=== PATIENT | female | born 1985 | race Caucasian/White ===

== ENCOUNTER 2021-10-07 18:05 | Emergency (ER) | payer OTHER, SELFPAY ==
--- NOTE | ~2021-10-07 | XR_ITS ---
EXAMINATION: XR chest 2V DATE: 10/07/2021 18:33 INDICATION: Cough and fatigue TECHNIQUE: PA and lateral views of the chest are obtained. COMPARISON: 05/30/2010 FINDINGS: The lungs are free of acute opacities. No pleural effusion or pneumothorax. The cardiomedia stinal silhouette is normal. The visualized bones and soft tissues are unremarkable. IMPRESSION: 1. No acute cardiopulmonary abnormality. Reviewed, dictated and finalized at location A.
[2021-10-07 18:13] VITALS: BP 120/83; PULSE 79; RESP 16; TEMP 37.6; O2SAT 100
--- NOTE | 2021-10-07 18:28 | ED.URI ---
HPI - URI/Sore Throat General Chief Complaint: Upper Respiratory Infection Stated Complaint: cough/fatigue Time Seen by Provider: 10/07/21 18:18 Source: patient Mode of arrival: ambulatory Limitations: no limitations History of Present Illness HPI Narrative: Patient presents today complaining of 2-day history of cough, nasal congestion, fatigue, fever up to 100.9, and shortness of breath with some chest pressure. She has tried no medication for her symptoms prior to arrival. She was tested by her job for influenza, but does not yet have the results. She tested positive for COVID-19 on September 21 and started Paxil Pop on September 22 for 5 days. States her symptoms resolved and she was back to baseline after the course of that medication. Denies any history of asthma or COPD. She has been vaccinated for COVID-19. Related Data Allergies Allergy/AdvReac Type Severity Reaction Status Date / Time latex Allergy Mild Verified 02/23/13 07:53 morphine Allergy Mild Verified 02/23/13 07:53 Review of Systems Review of Systems: CONSTITUTIONAL: Denies body aches, chills, or sweats.+ Fever, fatigue EYES: Denies visual changes, redness, or discharge. ENT: Denies rhinorrhea, sore throat, or otalgia.+ congestion CARDIOVASCULAR: Denies chest pain, palpitations, or edema. RESPIRATORY: + Cough, chest pressure, shortness of breath GASTROINTESTINAL: Denies abdominal pain, nausea, vomiting, or diarrhea. GENITOURINARY: Denies dysuria or hematuria. SKIN: Denies rash, itching, or wounds. MUSCULOSKELETAL: Denies back pain, joint pain, or myalgia. NEUROLOGIC: Denies headache, numbness, tingling, or weakness. PSYCH: Denies depression or anxiety. PMFSH Comments At time of signature, I have reviewed and agree with nursing past medical, surgical, social and family history unless otherwise noted. Please see nursing chart for further information. There is no relevant family history pertinent to the presenting complaint Exam Narrative: GENERAL: Mildly ill-appearing, well-nourished, and in no acute distress. HEAD: Normocephalic, atraumatic. EYES: EOMI. No redness or drainage. Conjunctivae normal. ENT: Mucous membranes pink and moist. Nares congested. No rhinorrhea. TMs normal bilaterally. Throat normal. Uvula midline. NECK: Normal AROM. Supple. No lymphadenopathy. CHEST: No respiratory distress. Clear to auscultation. Slightly labored when speaking. HEART: Regular rate and rhythm. No murmur appreciated. Normal peripheral pulses. EXTREMITIES: Normal range of motion. No edema. SKIN: Warm, dry, no rash. Capillary refill normal. Normal skin turgor. NEURO: No focal deficits. Alert and oriented x3. Gait steady. PSYCH: Normal affect. No signs of depression or anxiety. Course Course Level of Care: Express Care Visit Vital Signs Vital signs: Vital Signs Temperature 99.6 F 10/07/21 18:13 Pulse Rate 79 10/07/21 18:13 Respiratory Rate 16 10/07/21 18:13 Blood Pressure 120/83 10/07/21 18:13 Pulse Oximetry 100 10/07/21 18:13 Oxygen Delivery Room Air 10/07/21 18:13 Temperature 99.6 F 10/07/21 18:13 Pulse Rate 79 10/07/21 18:13 Respiratory Rate 16 10/07/21 18:13 Blood Pressure 120/83 10/07/21 18:13 Pulse Oximetry 100 10/07/21 18:13 Oxygen Delivery Room Air 10/07/21 18:13 Reviewed. Pt has been instructed to follow up with her PCP regarding her elevated blood pressure today. MDM - URI/Sore Throat Differential Diagnosis Differential diagnosis: Likely upper respiratory infection, viral infection, bronchitis, influenza and other (Pneumonia) Imaging Data Radiologist's impression: ITS Impressions Chest X-Ray 10/07/21 18:34 IMPRESSION: 1. No acute cardiopulmonary abnormality. Critical Care Time Critical Care Time Critical Care Time: No Discharge Plan Discharge Clinical Impression: Upper respiratory infection, Bronchitis Patient Disposition: Home, Self-Care Condition: Stable I
== END 2021-10-07 18:55 | disposition home or self-care (01) ==
PROVIDERS: Emergency Provider Nurse Practitioner
DX: J06.9 Acute upper respiratory infection, unspecified (principal); J40 Bronchitis, not specified as acute or chronic; Z86.16 Personal history of COVID-19
CPT/HCPCS: 71046; 99203; G0463

== ENCOUNTER 2022-02-19 17:17 | Emergency (ER) | payer OTHER, SELFPAY ==
--- NOTE | ~2022-02-19 | XR_ITS ---
EXAMINATION: XR abdomen/kub 1V DATE: 02/19/2022 17:50 INDICATION: Low abdominal pain. TECHNIQUE: A supine view of the abdomen was obtained. COMPARISON: None. FINDINGS: There are no dilated loops of bowel. There is a moderate volume of stool in the colon. Ther e is an intrauterine device in expected position. IMPRESSION: 1. Normal bowel gas pattern. Reviewed, dictated and finalized at location A. TIC [employer]ER
--- NOTE | 2022-02-19 17:28 | ED.ABDPAIN ---
HPI - Abdominal Pain General Chief Complaint: Abdominal Pain Stated Complaint: ABD PAIN Time Seen by Provider: 02/19/22 17:32 Source: patient and RN notes reviewed Mode of arrival: ambulatory Limitations: no limitations History of Present Illness HPI narrative: 36-year-old female presents concern for bilateral lower quadrant abdominal pain. She reports pain began on February 13 after she had intercourse. She reports the condom may have broken during intercourse. She reports she has an IUD that is , in August. She has not felt for the strings. She denies abnormal vaginal discharge, abnormal vaginal bleeding, dysuria, frequency, urgency. She reports she has constipation, last bowel movement was today which was hard and she strained. She denies flank pain. She denies relieving or exacerbating factors to her abdominal pain. She reports the pain is intermittent in nature and is throbbing particularly left lower quadrant. She reports history of ovarian cyst, reports this pain does seem similar to that. MD elicited complaint: abdominal pain Related Data Allergies Allergy/AdvReac Type Severity Reaction Status Date / Time latex Allergy Mild Verified 02/23/13 07:53 morphine Allergy Mild Verified 02/23/13 07:53 Review of Systems Review of Systems: CONSTITUTIONAL: Denies malaise, chills, sweats, or fever. ENT: Denies rhinorrhea, congestion, sinus pain, otalgia or sore throat. CARDIOVASCULAR: Denies chest pain, palpitations, or edema. RESPIRATORY: Denies cough or dyspnea. GASTROINTESTINAL: Reports bilateral lower quadrant abdominal pain. Denied nausea, vomiting, diarrhea, bloody, or mucous stools. Reports constipation GENITOURINARY: Denies dysuria, frequency, urgency, or hematuria. Denies abnormal vaginal discharge, bleeding MUSCULOSKELETAL: Denies myalgia. NEUROLOGIC: Denies headache. All systems reviewed & are unremarkable except as noted in HPI and below PMFSH Comments At time of signature, agree with nursing past medical, surgical, social and family history. There is no relevant family history pertinent to the presenting complaint Exam Narrative: GENERAL: Well-appearing, well-nourished, and in no acute distress. HEAD: Normocephalic, atraumatic. EYES: PERRLA, conjunctivae clear, and EOMI. ENT: Nares clear, turbinates pink, no rhinorrhea or epistaxis. Mucous membranes moist. Oropharynx without edema, erythema, or lesions. Tonsils not enlarged and without exudate. NECK: Supple. No lymphadenopathy CHEST: Speaks in full sentences. No respiratory distress. HEART: Regular rate and rhythm. ABDOMEN: Soft, flat, nondistended, nontender. No guarding, rebound tenderness, or rigidity. No pulsatile masses. Bowel sounds present in all four quadrants. No organomegaly. Negative Mcgvoern?s sign. No periumbilical tenderness. No Supra public tenderness or distension. Good femoral pulses bilaterally. No hernia noted. No scars or surface trauma. SKIN: Warm, dry, no rash. NEURO: Alert and oriented x3. PSYCH: Normal mood and affect : External Female Exam: normal external appearance Speculum Exam - Vagina: normal appearance of the vagina, normal palpation and normal vaginal discharge Speculum Exam - Cervix: normal appearance of the cervix and normal palpation Bimanual exam- vagina & uterus: normal bimanual exam and normal palpation Bimanual Exam- Adnexa, other: normal adnexae Course Course Emergency Course: Discussed exam and test findings with patient. Discussed limited diagnostic capability at the [facility] for abdominal pain. Offered transfer to emergency department, patient preferred to keep her follow-up appointment with her sde and she understands reasons to go to the emergency room symptoms worsen. Patient is aware of diagnosis, understands and agrees to treatment plan. Anticipatory guidance given. Patient agrees to follow-up as directed and is aware of reasons to seek care at the emergency department. Portion
[2022-02-19 18:52] VITALS: BP 129/84; PULSE 91; RESP 16; TEMP 37; O2SAT 100
== END 2022-02-19 18:05 | disposition home or self-care (01) ==
PROVIDERS: Emergency Provider Nurse Practitioner
DX: R10.31 Right lower quadrant pain (principal); R10.32 Left lower quadrant pain
CPT/HCPCS: 74018; 81003; 81025; 99213; G0463

== ENCOUNTER 2023-09-07 03:56 | Emergency (ER) | payer OTHER, SELFPAY ==
--- NOTE | ~2023-09-07 | XR_ITS ---
Portable chest x-ray Comparison: 10/07/2021 Clinical History: Chest pain Findings: Lungs are clear, without focal consolidation or pleural effusion. Cardiomediastinal silho uette is stable. Bones and soft tissues are unremarkable. Impression: Normal chest. Reviewed, dictated and finalized at [facility]. Impression: Normal chest.
--- NOTE | 2023-09-07 03:58 | ECG_ITS ---
SEE SCANNED COPY FOR CONFIRMED REPORT MTDD
[2023-09-07 04:00] VITALS: BP 128/76; PULSE 74; RESP 21; O2SAT 100
[2023-09-07 04:04] VITALS: O2SAT 100
[2023-09-07 04:12] VITALS: PULSE 77
[2023-09-07 04:14] VITALS: BP 128/76; PULSE 74; RESP 16; O2SAT 100
[2023-09-07 04:16] LABS: Basophils Absolute Auto 0.1 K/mm3 (0.0-0.1); Basophils Percent Auto 0.7 % (0.2-1.2); Eosinophils Absolute Auto 0.1 K/mm3 (0-0.3); Hematocrit 41.7 % (37.0-47.0); Hemoglobin 13.5 g/dL (12.0-15.0); Immature Granulocyte Absolute 0.02 K/mm3 (0.00-0.031); Immature Granulocyte Percent A 0.3 % (0-0.5); Lymphocytes Absolute Auto 3.08 K/mm3 (0.9-3.2); Lymphocytes Percent Auto 44.1 % (18.3-44.2); Mean Corpuscular HGB Conc 32.4 g/dl (32-36); Mean Corpuscular Hemoglobin 30.2 pg (26-34); Mean Corpuscular Volume 93.3 fl (80-100); Mean Platelet Volume 11.4 fl (7.4-10.4); Monocytes Absolute Auto 0.6 K/mm3 (0.1-0.6); Monocytes Percent Auto 8.2 % (2.6-8.5); Neutrophils Absolute Auto 3.2 K/mm3 (1.3-6.7); Neutrophils Percent Auto 45.7 % (45.5-73.1); Platelet Count Result 257 k/mm3 (150-375); Red Blood Count 4.47 M/mm3 (4.2-5.4); Red Cell Distribution Width 14.6 % (11.5-14.5)
[2023-09-07 04:27] LABS: Alanine Aminotransferase 14 U/L (6-35); Alkaline Phosphatase 50 U/L (38-126); Anion Gap 5 mmol/L (4-12); Aspartate Amino Transferase 16 U/L (14-36); Bilirubin,Total 0.5 mg/dL (0.2-1.3); Blood Urea Nitrogen 10 mg/dL (7-17); Calcium 9.2 mg/dL (8.4-10.2); Carbon Dioxide 28 mmol/L (22-30); Chloride 107 mmol/L (98-107); Estimated CRCL calculation 84 ml/min; Estimated Glomerular Filt Rate > 60; Glucose 107 mg/dL (65-110); INR 0.9; Lipase 190 U/L (23-300); Potassium 3.8 mmol/L (3.4-5.0); Prothrombin Time 12.6 Seconds (11.1-14.7); Sodium 140 mmol/L (137-145)
[2023-09-07 04:28] LABS: Partial Thromboplastin Time 28.1 Seconds (22.3-36.8)
[2023-09-07 04:39] LABS: Troponin I < 0.012 ng/mL (0.000-0.034)
[2023-09-07] MEDS: MAG HYDROX/AL HYDROX/SIMETH 30 ML UDC PO (04:41)
[2023-09-07] MEDS: FAMOTIDINE 20 MG/2 ML VIAL IV PUSH (04:42)
[2023-09-07 05:02] VITALS: BP 117/82; PULSE 70; RESP 16; O2SAT 97
[2023-09-07 05:27] VITALS: BP 108/76; PULSE 74; RESP 14; O2SAT 100
--- NOTE | 2023-09-07 05:35 | ED.CHESTPAIN ---
HPI - Chest Pain General Chief Complaint: Chest Pain Stated Complaint: chest pain and difficulty breathing, nausea Time Seen by Provider: 09/07/23 04:12 Source: patient Limitations: no limitations History of Present Illness HPI narrative: Patient is a 38-year-old female presents to the emergency department complaining of chest pain. Patient states she woke up at about 3:13 a.m. this morning from sleep with is squeezing tightness sensation in the middle of her chest, admits to associated shortness of breath, S2 history of this type of pain in the past approximately 6 days ago when she had 2 episodes each night that both times woke her up from sleep, has never been evaluated for this in the past, notes that the pain is still present slightly and is about a 5/10 currently, every once a while she feels a shooting sensation going towards the left her shoulder but has not noticed anything that is making her pain better or worse, has not tried anything for the pain. Patient denies history of blood clots. Patient denies unilateral lower extremity swelling. Patient denies history of high blood pressure or diabetes or high cholesterol. Patient is nonsmoker. Patient admits to a family history of heart disease at a young age in her father. Patient denies any recent injuries or recent illness. Patient denies fever, vomiting, abdominal pain, diarrhea, urinary discomfort, numbness, weakness, sore throat, nasal congestion, rash. Related Data Home Medications Medication Instructions Recorded Confirmed levonorgestrel 21 mcg/24 hr (up to 1 device intrauterine ONCE 04/15/23 06/10/23 8 years) 52 mg intrauterine device (Mirena) Allergies Allergy/AdvReac Type Severity Reaction Status Date / Time avocado Allergy Mild Itching Verified 06/10/23 09:55 banana Allergy Mild Hives Verified 06/10/23 09:55 latex Allergy Mild Other Verified 06/10/23 09:55 morphine Allergy Mild Other Verified 06/10/23 09:55 Review of Systems Review of Systems: A 10 system review of systems was completed on the patient and is negative except for what is stated in the HPI. Nursing and ancillary documentation was reviewed. [facility] Past Medical History Medical History Encounter for IUD insertion Hypolipidemia Remove/insert IUD Surgical History Surgical History H/O wisdom tooth extraction History of delivery History of gynecological procedure (03/23/22) mirena iud removal and reinsertion of new device History of tonsillectomy Family History Family History Father Cerebrovascular accident Acute myocardial infarction Social History Social History (Updated 04/15/23 @ 10:45 by Nell Ray MA) Smoking status: Never smoker Alcohol intake: current Alcohol use details: occasional Substance use: never Current Housing: Decline to Answer Concerned About Future Housing: Decline to Answer Difficulty Paying Gas/Electric Bills: Decline to Answer Currently Unemployed: Decline to Answer Education: Decline to Answer Difficulty w/ Childcare or Family Care: Decline to Answer Living arrangements: with family Occupation/Education: occupation Gender identity (if verbalized by the patient): Female Sexual Orientation (if Verbalized by the Patient): Straight or Heterosexual Comments At time of signature, I have reviewed and agree with nursing past medical, surgical, social and family history unless otherwise noted. Please see the nursing chart for further information. There is no relevant family history pertinent to the presenting complaint. Exam Narrative: CONST: Well nourished. HENMT: Head is normocephalic and atraumatic. Moist mucous membranes. No posterior oropharynx erythema. EYES: No conjunctival icterus, injection, or pallor. PERRL. NECK: No meningeal signs. No JVD. RESP: A
[2023-09-07 05:48] LABS: D Dimer 0.45 ug/mL (<0.48)
[2023-09-07] MEDS: LORazepam INJ (*CRX) 2 MG/ML VIAL 0.5 MG IV PUSH (06:08)
--- NOTE | 2023-09-07 06:43 | ECG_ITS ---
SEE SCANNED COPY FOR CONFIRMED REPORT MTDD
--- NOTE | 2023-09-07 06:48 | PC.NURSE ---
Patient was shaking in pain and stating the squeezing feeling was coming back. Notified EDP Dr. Hernandez who advised to get another EKG. While staff was getting another EKG patient was verbally upset in tears stating that I shouldn't be treated like this . Patient states that the doctor told her I have other patients to take care of. What do you want me to do? Patient states that she wants to leave. Patient was advised that she can leave, but that nursing staff needs to remove IV first. IV was removed and patient was disconnected from the gas systems worker. Notified EDP Dr. Hernandez and charge nurse.
== END 2023-09-07 06:52 | disposition left against medical advice (07) ==
PROVIDERS: Emergency Provider Student in an Organized Health Care Education/Training Program
DX: R07.89 Other chest pain (principal); Z97.5 Presence of (intrauterine) contraceptive device; R94.31 Abnormal electrocardiogram [ECG] [EKG]
CPT/HCPCS: 36415; 71045; 80053; 83690; 84484; 85025; 85380; 85610; 85730; 93005; 96374; 96375; 99284; A9270; J2060